=== PATIENT | male | born 1985 | race Caucasian/White ===

== ENCOUNTER 2019-12-20 10:58 | Emergency (ER) | payer MEDICAID ==
[~2019-12-20] VITALS: Ht 188 cm; Wt 95.5 kg
[2019-12-20 11:02] VITALS: BP 120/79
[2019-12-20] MEDS ORDERED: METH4TAB81 PO (11:09)
== END 2019-12-20 11:19 | disposition home or self-care (01) ==
LOC: ER 10:59
DX: L23.9 Allergic contact dermatitis, unspecified cause (principal); F12.90 Cannabis use, unspecified, uncomplicated; F17.200 Nicotine dependence, unspecified, uncomplicated; Z79.899 Other long term (current) drug therapy
CPT/HCPCS: 99283

== ENCOUNTER 2020-02-07 19:15 | Emergency (ER) | payer MEDICAID ==
[~2020-02-07] VITALS: Ht 188 cm; Wt 96.0 kg
[~2020-02-07 19:15] MED LIST: METH4TAB81 PO
[2020-02-07 19:24] VITALS: BP 102/72
[2020-02-07] MEDS ORDERED: PRED20TA PO (19:42)
== END 2020-02-07 19:54 | disposition home or self-care (01) ==
LOC: ER 19:15
DX: L23.9 Allergic contact dermatitis, unspecified cause (principal); L29.8 Other pruritus; F12.90 Cannabis use, unspecified, uncomplicated; Z79.899 Other long term (current) drug therapy
CPT/HCPCS: 99283